=== PATIENT | female | born 1995 | race Caucasian/White ===

== ENCOUNTER 2022-04-22 00:23 | Emergency (ER) | payer OTHER, SELFPAY ==
[2022-04-22 00:27] VITALS: BP 124/70; PULSE 100; RESP 16; TEMP 37.4; O2SAT 99
[2022-04-22] MEDS: 0.9 % SODIUM CHLORIDE 1000 ml 1,000 ML IV (01:22)
[2022-04-22] MEDS: ONDANSETRON 2 MG/ML inj 4 MG IVP (01:22)
[2022-04-22 01:36] LABS: Chloride* 107 mmol/L (96-114)
[2022-04-22 01:37] LABS: Sodium* 142 mmol/L (135-149)
[2022-04-22 01:39] LABS: Creatinine* 0.6 mg/dL (0.5-1.5); Estimated Glomerular Filt Rate 125 ml/min
[2022-04-22 01:40] LABS: Blood Urea Nitrogen* 13 mg/dL (5-24); Calcium* 9.5 mg/dL (8.4-10.6); Carbon Dioxide* 25 mmol/L (20-32); Glucose* 100 mg/dL (60-115)
[2022-04-22 02:01] LABS: PCR FLU A Negative PCR FLU A (Negative); PCR FLU B Negative PCR FLU B (Negative)
[2022-04-22 02:11] LABS: SARS PCR* POSITIVE SARS-CoV-2 (Negative)
--- NOTE | 2022-04-22 02:31 | ED.NURSE ---
attempting fluid challenge with apple juice.
[2022-04-22 02:52] VITALS: PULSE 98; RESP 16; TEMP 36.8; O2SAT 98
--- NOTE | 2022-04-22 07:53 | ED_ITS ---
HPI - Nausea/Vomiting/Diarrhea General Chief complaint: Nausea/Vomiting Stated complaint: can't stop vomiting. Time Seen by Provider: 04/22/22 00:43 History of Present Illness HPI Narrative: 26-year-old young woman presenting with concern of repeated vomiting. Accompanied by her spouse. Left work earlier just not feeling well. Has continued to vomit over the course of the day. No hematemesis. No diarrhea. Not really abdominal pain. No particular exposures noted. Is vaccinated for COVID, not boosted. No fever. Not particularly with a sore throat maybe a little bit from vomiting. Not short of breath. Not lightheaded but more weak. Related Data Previous Rx's Medication Instructions Recorded nirmatrelvir 300 mg (150 mg See Rx Instructions PO .COMPLEX 04/22/22 x2)-ritonavir 100 mg tablet,dose #30 ea pack(EUA) (Paxlovid) ondansetron 4 mg disintegrating 4 mg PO Q6H PRN nausea/vomiting 04/22/22 tablet #12 tabs Allergies Allergy/AdvReac Type Severity Reaction Status Date / Time No Known Drug Allergies Allergy Verified 04/22/22 00:31 Review of Systems Status of ROS: Reports: 10 or more systems reviewed and unremarkable except as noted in History and below PFSH [facility] Social History Smoking Status: Never smoker Do you use any of these nicotine containing products: None Second hand tobacco smoke exposure: No How often do you have a drink containing alcohol: never How often do you have six or more drinks on one occasion: Never AUDIT-C Alcohol total score: 0 Non-prescribed substance use: denies use service: No Exam Narrative: Exam Narrative: Pleasant. Quiet. NAD. Seems a little uncomfortable though. Skin is warm and dry. Well perfused. Extremities without apparent edema. Oropharynx is a little sticky. Not erythematous. Neck is supple without lymphadenopathy. Heart is with elevated rate in a regular rhythm. Abdomen with normoactive bowel sounds soft and diffusely mildly tender. Moving all extremities without difficulty. Breathing easily. Speaking easily. Cranial nerves 2-12 look to be intact. Const: Vital Signs, click to edit/add: Vital Signs - 24 hr 04/22/22 00:27 04/22/22 02:52 Temperature 99.3 F 98.3 F Pulse Rate [Left P ulse Oximeter] 100 98 Respiratory Rate 16 16 Blood Pressure [Ri ght Upper Arm] 124/70 Pulse Oximetry 99 98 Oxygen Delivery Me thod Room Air Room Air Documenting provider has reviewed patient's vital signs: yes Course Vital Signs Vital signs: Initial Vital Signs Temperature 99.3 F 04/22/22 00:27 Temperature Source Temporal Artery Scan 04/22/22 00:27 Pulse Rate 100 04/22/22 00:27 Pulse Rhythm 04/22/22 00:27 Respiratory Rate 16 04/22/22 00:27 Blood Pressure 124/70 04/22/22 00:27 Blood Pressure Mean 88 04/22/22 00:27 Blood Pressure Position Sitting 04/22/22 00:27 Pulse Oximetry 99 04/22/22 00:27 Oxygen Delivery Method 04/22/22 00:27 Vital Signs Temperature 99.3 F 04/22/22 00:27 Pulse Rate 100 04/22/22 00:27 Respiratory Rate 16 04/22/22 00:27 Blood Pressure 124/70 04/22/22 00:27 Pulse Oximetry 99 04/22/22 00:27 Oxygen Delivery Method 04/22/22 00:27 Temperature 98.3 F 04/22/22 02:52 Pulse Rate 98 04/22/22 02:52 Respiratory Rate 16 04/22/22 02:52 Blood Pressure 124/70 04/22/22 00:27 Pulse Oximetry 98 04/22/22 02:52 Oxygen Delivery Method 04/22/22 02:52 MDM - Nausea/Vomiting/Diarrhea MDM Narrative Medical decision making narrative: Certainly not the 1st vomiting illness presenting to the emergency department today from this community. Given duration of vomiting presume some degree of dehydration and might be worth checking electrolytes. Will also triple screen. IV is placed. Received a L normal saline and Zofran. Overall improved. Tolerating oral liquid intake. Was indeed positive for COVID. Early on in course would still be candidate for Paxlovid. Lab Data Attestation: I reviewed the patient's lab results. Labs: Lab Results 04/22/22 04/22/22 Range/Units 01:15 01:15 Sodium 142 (135-149) mmol/L Potassium 4.0 (3.6-5.1) mmol/L Chloride 107 (96-114) mmol/L Carbon Dioxide 25 (20-32) mmol/L BUN 13 (5-24) mg/dL Creatinine 0.6 (0.5-1.5) mg/dL Estimated GFR 125 ml/min Glucose 100 (60-115) mg/dL Calcium 9.5 (8.4-10.6) mg/dL SARS-CoV-2 (PCR) POSITIVE SARS-CoV-2 A (Negative) Influenza Type A (PCR) Negative PCR FLU A (Negative) Influenza Type B (PCR) Negative PCR FLU B (Negative) Discharge Plan Discharge Clinical Impression: COVID-19, Vomiting, Dehydration Patient Disposition: Home w/ Parent or Adult Condition: Improved Additional Instructions: Focus on hydration. Slow advance of diet over the next 24-36 hours. Diluted juices, soup broths, advancing to thicker soups and smoothies. Rice. [place]. Recommendations still are to quarantine for 10 days from the 1st onset of symptoms. Once you are feeling better or maybe in 2 weeks, consider further COVID vaccine/booster. If you become increasingly short of breath, get yourself an oxygen saturation monitor and return to the emergency department for oxygen saturations persistently 90% or less. Prescriptions: New Paxlovid (EUA) 300 mg (150 mg x 2)-100 mg tablets,dose pack See Rx Instructions .ROUTE .COMPLEX Qty: 30 0RF Rx Instructions: take TWO 150 mg tablets of nirmatrelvir with ONE 100 mg tablet of ritonavir twice daily for 5 days ondansetron 4 mg tablet,disintegrating 4 mg PO Q6H PRN (Reason: nausea/vomiting) Qty: 12 0RF Follow Up/Referrals: Provider,Not a Local [Primary Care Provider] - Stand Alone Forms: [facility] Info Instructions
== END 2022-04-22 02:54 | disposition home or self-care (01) ==
PROVIDERS: Emergency Provider Family Medicine
DX: U07.1 COVID-19 (principal); R11.10 Vomiting, unspecified; E86.0 Dehydration
CPT/HCPCS: 36415; 80048; 87631; 96361; 96374; 99283; 99284; J2405; J7030

== ENCOUNTER 2023-01-29 18:12 | Emergency (ER) | payer OTHER, SELFPAY ==
[2023-01-29 18:20] VITALS: BP 119/90; PULSE 100; RESP 18; TEMP 36.7; O2SAT 100; BMI 26.5
--- NOTE | 2023-01-29 18:26 | ED_ITS ---
HPI - General Adult General Time Seen by Provider: 18:26 Date Seen: 01/29/23 Chief complaint: Diarrhea Stated complaint: lactose inltorant,stomach pain,diarhea Time Seen by Provider: 01/29/23 18:17 Source: patient and RN notes reviewed Mode of arrival: ambulatory Limitations: no limitations History of Present Illness HPI narrative: This 27yo female is coming in with concern of abdominal pain and diarrhea. She notes maybe for few months she has been having some intermittent issues with diarrhea. Over last couple weeks it has worsened in the last few days have been bad. If she eats anything she has diarrhea. There is no associated fevers or chills, diarrhea is nonbloody. She has had no travel, no known ill contacts. She took a test and it said that she likely had some lactose intolerance but she feels she is having less Dairy than she normally would. Her belly is feeling bloated in gurgly. She has had no nausea or vomiting. She gets abdominal pain with this. It sounds as if she has not really kept anything in after eating the last few days. There is no chance for . She is not aware of any family members with any inflammatory bowel disease. Related Data Home Medications Medication Instructions Recorded Confirmed No Known Home Medications 01/29/23 01/29/23 Allergies Allergy/AdvReac Type Severity Reaction Status Date / Time No Known Drug Allergies Allergy Verified 04/22/22 00:31 Review of Systems Status of ROS: Reports: 6 or more systems reviewed and unremarkable except as noted in History and below PFSH PFS Social History Smoking Status: Never smoker Do you use any of these nicotine containing products: None Second hand tobacco smoke exposure: No How often do you have a drink containing alcohol: never How often do you have six or more drinks on one occasion: Never AUDIT-C Alcohol total score: 0 Non-prescribed substance use: denies use service: No Exam Const: Vital Signs, click to edit/add: Vital Signs - 24 hr 01/29/23 18:20 Temperature 98.0 F Pulse Rate [Right Pulse Oximeter] 100 Respiratory Rate 18 Blood Pressure [Ri ght Upper Arm] 119/90 H Pulse Oximetry 100 Oxygen Delivery Me thod Room Air This 27-year-old female is alert, interactive, no apparent distress. She is sitting up on the edge of the exam bed in exam room 1. She is very pleasant, able to speak in complete sentences. Sclera clear, conjugate gaze. Speech is normal. Neck is supple, no cervical adenopathy, no thyromegaly masses or nodules. Lungs are clear, good air entry, no wheezing or crackles. CV regular rate and rhythm, no murmur, normal S1 and S2. Abdomen is soft, not distended on my examination, no palpable masses, no organomegaly noted, she really is not tender anywhere when I palpate, certainly no rebound or guarding. Bowel sounds are present, do not really have any concerning character that I can hear at this time. She was ambulatory into the ED of her own accord. Documenting provider has reviewed patient's vital signs: yes Course Course ED Course: Reviewed with patient some of the differential of diarrhea. There can be inflammatory bowel disease, irritable bowel disease, can be infectious, could be malabsorption, could be her lactose intolerance. We will give her a L of IV fluids given the increase of diarrhea the last few days, get baseline lab. Will start with imaging with flat and upright just to look at the character of the bowels. Have reviewed with her that I will order stool studies for C diff, stoo l culture and ova and parasites, if she does not produce stool here she may take them and collecting bring back. It is very likely that we will not have a diagnosis for her today if labs are reassuring in no concerning abnormality on the flat and upright. She understands that she very likely will have to follow up outpatient, may even need colonoscopy as an intervention for diagnosis if ongoing symptoms. Right now she is hemodynamically stable, do think that she at this point would be appropriate for out patient workup if that is what is decided. Reevaluation(s) Time of Reevaluation #1: 19:35 Reevaluation #1: Reviewed patient's elevated white blood count, reviewed the air-fluid levels and did [place] picture of these on her abdominal imaging. The abdominal imaging has not been over-read by Radiology at this time. We are going to proceed with CT imaging for further delineation of underlying process. She is in agreement. Time of Reevaluation #2: 21:43 Reevaluation #2: Have reviewed patient CT report with her. Unfortunately this looks like it might be an inflammatory bowel disorder such as Crohn's with the terminal ileitis. We really should rule out infectious etiology and certainly C difficile before initiating anything like prednisone. She did leave stool here, will have her follow up in clinic to get scheduled for colonoscopy. She does not have a primary provider, will need to see someone in our clinic system this next week. Vital Signs Vital signs: Initial Vital Signs Temperature 98.0 F 01/29/23 18:20 Temperature Source Temporal Artery Scan 01/29/23 18:20 Pulse Rate 100 01/29/23 18:20 Respiratory Rate 18 01/29/23 18:20 Blood Pressure 119/90 H 01/29/23 18:20 Blood Pressure Mean 99 01/29/23 18:20 Blood Pressure Position Sitting 01/29/23 18:20 Pulse Oximetry 100 01/29/23 18:20 Oxygen Delivery Method Room Air 01/29/23 18:20 Vital Signs Temperature 98.0 F 01/29/23 18:20 Pulse Rate 100 01/29/23 18:20 Respiratory Rate 18 01/29/23 18:20 Blood Pressure 119/90 H 01/29/23 18:20 Pulse Oximetry 100 01/29/23 18:20 Oxygen Delivery Method Room Air 01/29/23 18:20 Temperature 98.0 F 01/29/23 18:20 Pulse Rate 100 01/29/23 18:20 Respiratory Rate 18 01/29/23 18:20 Blood Pressure 119/90 H 01/29/23 18:20 Pulse Oximetry 100 01/29/23 18:20 Oxygen Delivery Method Room Air 01/29/23 18:20 Medical Decision Making Lab Data Lab results reviewed: Yes I reviewed the patient's lab results Labs: Lab Results 01/29/23 Range/Units 19:05 WBC 15.08 H (4.50-11.00) K/uL RBC 5.00 (4.00-5.20) m/uL Hgb 14.7 (12.0-16.0) gm/dL Hct 44.0 (33.0-51.0) % MCV 88 (80-100) fL MCH 29 (26-34) pg MCHC 33 (32-36) gm/dL RDW Coeff of Rubens 12.8 (11.5-15.5) % Plt Count 265 (140-440) K/uL Neut % (Auto) 83.8 H (42.0-72.0) % Lymph % (Auto) 7.8 L (20-44) % [place] % (Auto) 5.5 (0.0-11.0) % Eos % (Auto) 2.6 (0.0-7.0) % Baso % (Auto) 0.1 (0.0-3.0) % Neut # (Auto) 12.60 H (1.7-7.0) K/uL Lymph # (Auto) 1.20 (0.90-2.90) K/uL [place] # (Auto) 0.80 (0.00-0.90) K/UL Eos # (Auto) 0.40 (0.00-0.50) K/uL Baso # (Auto) 0.00 (0.00-0.30) K/uL Abs Immat Gran (auto) 0.00 (0.00-0.30) K/uL Imm/Tot Granulo (auto) 0.2 % ESR 2 (2-20) mm/hr Sodium 139 (135-149) mmol/L Potassium 4.0 (3.6-5.1) mmol/L Chloride 106 (96-114) mmol/L Carbon Dioxide 20 (20-32) mmol/L Anion Gap 13 (7-15) mEq/L BUN 15 (5-24) mg/dL Creatinine 0.6 (0.5-1.5) mg/dL Estimated Creat Clear 109.42 Estimated GFR 125 ml/min Glucose 103 (60-115) mg/dL Lactate 1.1 (0.5-1.9) mmol/L Calcium 9.3 (8.4-10.6) mg/dL Total Bilirubin 1.5 (0.1-1.5) mg/dL AST 31 (12-35) U/L ALT 18 (4-35) U/L Alkaline Phosphatase 52 (40-150) U/L C-Reactive Protein < 0.5 L (0.5-1.0) mg/dL Total Protein 7.4 (6.0-8.3) g/dL Albumin 4.5 (3.3-5.0) g/dL Imaging Data Abdominal x-ray: Attestation: I have reviewed the pertinent imaging results. My impression: I see air-fluid levels without definitive obstructive process, there is air throughout the colon on the flat. Radiologist's impression: Patient: [facility] Facility:?[facility] Patient ID:?[id number] Site Patient ID:?[id number]. Site :?1995 Study:?XRay Abdomen FLAT /UPRIGHT 2V-01/29/2023 7:15:54 PM Ordering Physician:?Brianda Valles Final Report: Indication: Abdominal pain for weeks. Technique: Abdomen 3 views. Permanently recorded images are archived. Comparison: None. Findings: Bowel: Nonobstructive bowel gas pattern. Normal colonic stool burden. Other: No sign of free air. No sign of soft tissue mass. The lung bases are clear. The osseous structures are unremarkable for age. Impression: No evidence of an acute intra-abdominal process. Dictated by Marco Antonio Reveles MD @ 01/29/2023 8:00:06 PM (Electronic Signature) CT scan - abdomen: Attestation: I have reviewed the pertinent imaging results. Radiologist's impression: Patient: [facility] Facility:?[facility] Patient ID:?[id number] Site Patient ID:?[id number]. Site :?1995 Study:?CT Abdomen/Pelvis W/IV-01/29/2023 8:04:26 PM Ordering Physician:?Brianda Valles Final Report: INDICATION: Abdominal pain. Diarrhea. Elevated WBC. TECHNIQUE: CT abdomen and pelvis acquired with 71 mL Isovue 370 IV contrast. COMPARISON: None. FINDINGS: Lower chest: No focal consolidation. Liver: No suspicious focal hepatic lesion. Gallbladder and bile ducts: Unremarkable. Pancreas: Unremarkable. Spleen: Unremarkable. Splenule is noted. Adrenal glands: Unremarkable. Kidneys: Kidneys enhance symmetrically, without hydronephrosis. Too small to characterize hypodense left renal lesion in the upper pole. Retroperitoneum: No lymphadenopathy. Bowel and mesentery: Bowel is not obstructed. No significant ascites. No pneumoperitoneum. Normal appendix. There is hyperemia and perienteric inflammatory changes of the terminal ileum. Fluid-filled colon, compatible with diarrheal illness. Possible additional short segment colitis of the distal rectum. Bladder: Decompressed, suboptimally evaluated. Reproductive organs: Unremarkable. Pelvic lymph nodes: No lymphadenopathy. Vessels: Unremarkable. Abdominal wall: No acute abdominal wall abnormality. Bones: No suspicious/aggressive focal osseous lesion. IMPRESSION: 1. Hyperemia and perienteric inflammatory changes of the terminal ileum, consistent with ileitis. This may be infectious or inflammatory in etiology, differential includes Crohn`s disease. 2. Fluid-filled colon, compatible with diarrheal illness. Additional short s egment colitis of the distal rectum is noted. Please note that all CT scans at this facility use dose modulation, iterative reconstruction, and/or weight-based dosing when appropriate to reduce radiation dose to as low as reasonably achievable. Dictated by Luis Alberto Lane MD @ 01/29/2023 8:46:35 PM (Electronic Signature) Critical Care Time Critical Care Time Critical Care Time: No Discharge Plan Discharge Clinical Impression: Diarrhea Patient Disposition: Home, Self-Care Condition: Stable Instructions: Acute Diarrhea (ED), Nutrition Tips for Relief of Diarrhea (ED) Additional Instructions: It is important that you drink adequately to stay hydrated. Follow the handout for nutrition tips for relief of diarrhea. You need to follow up in clinic as soon as you can this next week, contact 1 of our clinics to see if you can get in. You will need to get scheduled for a colonoscopy. If the stool studies rule out infectious etiology, prednisone could be considered, may help relieve diarrhea if it is from inflammatory bowel disease such as Crohn's. The colonoscopy is the definitive diagnostic test that needs to be done. If you are worsening, have increasing abdominal pain, develops fever, not able to keep up with oral intake, please seek re-evaluation in the interim. Prescriptions: No Action No Known Home Medications Follow Up/Referrals: Provider,Not a Local [Primary Care Provider] - Stand Alone Forms: [employer] Info Instructions
--- NOTE | 2023-01-29 18:45 | CRLHL7_ITS ---
For Patients: As a result of the Century Cures Act, medical imaging exams and procedure reports are released immediately into your electronic medical record. You may view this report before your referring provider. If you have questions, please contact your health care provider. Indication: Abdominal pain for weeks. Technique: Abdomen 3 views. Permanently recorded images are archived. Comparison: None. Findings: Bowel: Nonobstructive bowel gas pattern. Normal colonic stool burden. Other: No sign of free air. No sign of soft tissue mass. The lung bases are clear. The osseous structures are unremarkable for age. Impression: No evidence of an acute intra-abdominal process. Dictated by Marco Antonio Reveles MD @ 01/29/2023 8:00:06 PM (Electronically Signed)
[2023-01-29] MEDS: 0.9 % SODIUM CHLORIDE 1000 ml 1,000 ML IV (19:15)
--- NOTE | 2023-01-29 19:21 | ED.NURSE ---
pt report given off to oncoming RN
[2023-01-29 19:25] LABS: Lactate* 1.1 mmol/L (0.5-1.9)
[2023-01-29 19:29] LABS: Basophils Percent Auto 0.1 % (0.0-3.0); Eosinophils Percent Auto 2.6 % (0.0-7.0); Hemoglobin* 14.7 gm/dL (12.0-16.0); Immature Granulocytes Pct Auto 0.2 %; Lymphocytes Percent Auto 7.8 % (20-44); Mean Corpuscular HGB Conc 33 gm/dL (32-36); Mean Corpuscular Hemoglobin 29 pg (26-34); Mean Corpuscular Volume 88 fL (80-100); Monocytes Percent Auto 5.5 % (0.0-11.0); Neutrophils Percent Auto 83.8 % (42.0-72.0); Platelet Count* 265 K/uL (140-440); RDW Coefficient of Variation % 12.8 % (11.5-15.5); White Blood Count* 15.08 K/uL (4.50-11.00)
[2023-01-29 19:31] LABS: Slide Review Reflex No
--- NOTE | 2023-01-29 19:33 | CRLHL7_ITS ---
For Patients: As a result of the Century Cures Act, medical imaging exams and procedure reports are released immediately into your electronic medical record. You may view this report before your referring provider. If you have questions, please contact your health care provider. INDICATION: Abdominal pain. Diarrhea. Elevated WBC. TECHNIQUE: CT abdomen and pelvis acquired with 71 mL Isovue 370 IV contrast. COMPARISON: None. FINDINGS: Lower chest: No focal consolidation. Liver: No suspicious focal hepatic lesion. Gallbladder and bile ducts: Unremarkable. Pancreas: Unremarkable. Spleen: Unremarkable. Splenule is noted. Adrenal glands: Unremarkable. Kidneys: Kidneys enhance symmetrically, without hydronephrosis. Too small to characterize hypodense left renal lesion in the upper pole. Retroperitoneum: No lymphadenopathy. Bowel and mesentery: Bowel is not obstructed. No significant ascites. No pneumoperitoneum. Normal appendix. There is hyperemia and perienteric inflammatory changes of the terminal ileum. Fluid-filled colon, compatible with diarrheal illness. Possible additional short segment colitis of the distal rectum. Bladder: Decompressed, suboptimally evaluated. Reproductive organs: Unremarkable. Pelvic lymph nodes: No lymphadenopathy. Vessels: Unremarkable. Abdominal wall: No acute abdominal wall abnormality. Bones: No suspicious/aggressive focal osseous lesion. IMPRESSION: 1. Hyperemia and perienteric inflammatory changes of the terminal ileum, consistent with ileitis. This may be infectious or inflammatory in etiology, differential includes Crohn`s disease. 2. Fluid-filled colon, compatible with diarrheal illness. Additional short segment colitis of the distal rectum is noted. Please note that all CT scans at this facility use dose modulation, iterative reconstruction, and/or weight-based dosing when appropriate to reduce radiation dose to as low as reasonably achievable. Dictated by Luis Alberto Lane MD @ 01/29/2023 8:46:35 PM (Electronically Signed)
[2023-01-29 20:01] LABS: Albumin* 4.5 g/dL (3.3-5.0); Chloride* 106 mmol/L (96-114); Sodium* 139 mmol/L (135-149)
[2023-01-29 20:04] LABS: Anion Gap 13 mEq/L (7-15); Carbon Dioxide* 20 mmol/L (20-32); Creatinine* 0.6 mg/dL (0.5-1.5); Est. Creatinine Clearance* 109.42; Estimated Glomerular Filt Rate 125 ml/min
[2023-01-29 20:05] LABS: Alanine Aminotransferase* 18 U/L (4-35); Alkaline Phosphatase* 52 U/L (40-150); Aspartate Amino Transferase* 31 U/L (12-35); Bilirubin Total* 1.5 mg/dL (0.1-1.5); Blood Urea Nitrogen* 15 mg/dL (5-24); Calcium* 9.3 mg/dL (8.4-10.6); Glucose* 103 mg/dL (60-115); Total Protein* 7.4 g/dL (6.0-8.3)
[2023-01-29 20:09] LABS: C Reactive Protein* < 0.5 mg/dL (0.5-1.0)
[2023-01-29 20:53] LABS: Erythrocyte SedimentationRate* 2 mm/hr (2-20)
[2023-01-29 22:00] VITALS: BP 124/52; PULSE 90; RESP 16; O2SAT 99
--- NOTE | 2023-01-29 22:03 | ED.NURSE ---
stool kit sent home with pt, will return sample if/when obtained.
[2023-01-30 12:59] LABS: C.Difficile Negative (Negative); CDIFFEPI 027 PRESUMPTIVE NEGATIVE (Negative)
[2023-02-02 10:11] LABS: Ova and Parasite, Fecal Negative (Negative)
== END 2023-01-29 22:04 | disposition home or self-care (01) ==
PROVIDERS: Emergency Provider Family Medicine
DX: R10.9 Unspecified abdominal pain (principal); R19.7 Diarrhea, unspecified
CPT/HCPCS: 36415; 74019; 74177; 80053; 83605; 85025; 85651; 86140; 87045; 87046; 87177; 87209; 87427; 87493; 99284; 99285; J7030; Q9967